=== PATIENT | female | born 1955 | race Caucasian/White ===

== ENCOUNTER 2024-10-06 16:45 | Emergency (ER) | payer MEDICARE ==
--- NOTE | 2024-10-06 16:54 | ED ---
Lower Extremity Injury HPI - General Stated Complaint: Fall-R foot injury Time Seen by Provider: 10/06/24 16:53 Source: patient, RN notes reviewed Mode of arrival: wheelchair Limitations: physical limitation - History of Present Illness Initial Comments: 69 year old female presenting to the ER for evaluation of right ankle injury. Patient states she was walking down stairs that were wet from the rain when she accidentally slipped. She states she twisted her right ankle during the process. No paresthesias to right foot. She denies head or other injuries. No other complaints. - Related Data Previous Rx's Medication Instructions Recorded HYDROcodone/APAP 7.5-325MG [Bent[place] 1 tab PO Q6HR PRN 3 Days #12 tab 10/06/24 7.5-325] Allergies Allergy/AdvReac Type Severity Reaction Status Date / Time adhesive Allergy Unknown Verified 10/06/24 16:56 aspartame Allergy Unknown Verified 10/06/24 16:56 nickel Allergy Unknown Verified 10/06/24 16:56 Review of Systems ROS Statement: Those systems with pertinent positive or pertinent negative responses have been documented in the HPI. ROS Other: All systems not noted in ROS Statement are negative. General Exam - General Exam Comments Initial Comments: Visual Physical Exam Vital signs reviewed General: Well-appearing, nontoxic, no acute distress. Head: Normocephalic, atraumatic Eyes: PERRLA, EOMI ENT: Airway patent Chest: Nonlabored breathing Skin: No visual rash, normal skin tone Neuro: Alert and oriented 3 Musculoskeletal: Edema to right ankle 2+ right DP pulse. Limitations: physical limitation General appearance: alert, in no apparent distress Respiratory exam: Present: normal lung sounds bilaterally. Absent: respiratory distress, wheezes, rales, rhonchi, stridor Cardiovascular Exam: Present: regular rate, normal rhythm, normal heart sounds. Absent: systolic murmur, diastolic murmur, rubs, gallop, clicks Extremities exam: Present: tenderness (Right ankle with surrounding edema normal contusion. No overlying wounds or rashes. 2+ right DP pulse. Sensation intact. Brisk cap refill.) Neurological exam: Present: alert, oriented X3, CN II-XII intact Skin exam: Present: warm, dry, intact, normal color. Absent: rash Course Vital Signs 10/06/24 10/06/24 16:52 18:57 Temperature 97.3 F L 98.1 F Pulse Rate 78 75 Respiratory 16 18 Rate Blood Pressure 145/72 122/80 O2 Sat by Pulse 99 96 Oximetry Procedures - Orthopedic Splinting/Casting Injury #1 Side: right Lower Extremity Injury Location: ankle Lower Extremity Immobilizer: posterior splint, stirrup splint Other Orthopedic Equipment: crutches Medical Decision Making - Medical Decision Making I performed the quick note portion of this chart. Electronically signed by John Ware PA-C Was pt. sent in by a medical professional or institution ([facility], [facility], urgent care, hospital, or assisted...) When possible be specific @ -No Did you speak to anyone other than the patient for history (EMS, parent, family, police, friend...)? What history was obtained from this source @ -No Did you review nursing and triage notes (agree or disagree)? Why? @ -I reviewed and agree with nursing and triage notes Were old charts reviewed (outside hosp., previous admission, EMS record, old EKG, old radiological studies, urgent care reports/EKG's, assisted records)? Report findings @ -No old charts were reviewed Differential Diagnosis (chest pain, altered mental status, abdominal pain women, abdominal pain men, vaginal bleeding, weakness, fever, dyspnea, syncope, headache, dizziness, GI bleed, back pain, seizure, CVA, palpatations, mental health, musculoskeletal)? @ -Differential Musculoskeletal: Muscular strain, contusion, ligament sprain, fracture, arthritis, septic arthritis, bursitis, cellulitis, muscle spasm, nerve compression, DVT, arterial occlusion, herpes zoster, electrolyte abnormality, tumor.... This is not meant to be in all inclusive list EKG interpreted by me (3pts min.). @ -None done X-rays interpreted by me (1pt min.). @ -Right ankle x-ray showed acute fracture of distal fibula and medial malleolus. Gaping of ankle mortise and medial malleolus concerning of syndesmotic injury. CT interpreted by me (1pt min.). @ -None done U/S interpreted by me (1pt. min.). @ -None done What testing was considered but not performed or refused? (CT, X-rays, U/S, labs)? Why? @ -None What meds were considered but not given or refused? Why? @ -None Did you discuss the management of the patient with other professionals (professionals i.e. DrFrank, PA, POWDERER, lab, RT, psych nurse, social media sr strategy manager, case hardener, teacher, airplane first officer, shoe caser)? Give summary @ -No Was smoking cessation discussed for >3mins.? @ -No Was critical care preformed (if so, how long)? @ -No Were there social determinants of health that impacted care today? How? (Homelessness, low income, unemployed, alcoholism, drug addiction, transportation, low edu. Level, literacy, decrease access to med. care, fdc, rehab)? @ -No Was there de-escalation of care discussed even if they declined (Discuss DNR or withdrawal of care, Hospice)? DNR status @ -No What co-morbidities impacted this encounter? (DM, HTN, Smoking, COPD, CAD, Cancer, CVA, ARF, Chemo, Hep., AIDS, mental health diagnosis, sleep apnea, morbid obesity)? @ -None Was patient admitted / discharged? Hospital course, mention meds given and route, prescriptions, significant lab abnormalities, going to OR and other pertinent info. @ -Discharge. 69-year-old female presenting to the ER for evaluation of right ankle injury. History and physical exam completed. Vitals within normal limits. Patient is neurovascularly intact. There is edema to right ankle. 2+ DP and PT pulse. No overlying skin changes. X-rays showing a distal fibula fracture and medial malleolus fracture with possible syndesmotic injury. Splint placed, see note above. Crutches provided. Patient given IM Dilaudid for pain control. Bentonia prescribed for outpatient pain management. I advised close follow-up with orthopedics, referral given. Strict return parameters discussed. Patient discharged in stable condition with follow-up to orthopedics. Patient verbally expressed understanding and agreement with care plan. Case discussed with ED attending, Dr. Hahn. Undiagnosed new problem with uncertain prognosis? @ -No Drug Therapy requiring intensive monitoring for toxicity (Heparin, Nitro, Insulin, Cardizem)? @ -No Were any procedures done? @ -Yes Diagnosis/symptom? @ -Distal fibula fracture/medial malleolar fracture Acute, or Chronic, or Acute on Chronic? @ -Acute Uncomplicated (without systemic symptoms) or Complicated (systemic symptoms)? @ -Uncomplicated Side effects of treatment? @ -No Exacerbation, Progression, or Severe Exacerbation? @ -No Poses a threat to life or bodily function? How? (Chest pain, USA, MA, pneumonia, PE, COPD, DKA, ARF, appy, cholecystitis, CVA, Diverticulitis, Homicidal, Suicidal, threat to staff... and all critical care pts) @ -No - Radiology Data Radiology results: report reviewed, image reviewed Disposition Clinical Impression: Fracture of distal fibula, Fractured medial malleolus Disposition: HOME SELF-CARE Condition: Stable Instructions (If sedation given, give patient instructions): Ankle Fracture (ED) Additional Instructions: Remain nonweightbearing. Follow-up with orthopedics. Return to the ER for new or worsening concerns. Prescriptions: HYDROcodone/APAP 7.5-325MG [Bent[place] 7.5-325] 1 tab PO Q6HR PRN 3 Days #12 tab PRN Reason: Moderate To Severe Pain (4-10) Is patient prescribed a controlled substance at d/c from ED?: Yes When asked, does pt state using other controlled substances?: No If prescribed controlled substance>3 days was MAPS reviewed?: Prescribed <3 Days If opioid is for acute pain is fill amount 7 days or less?: Yes If Rx opioid, was Start Talking consent form obtained?: Yes Referrals: Lakeshia Peters MD [Primary Care Provider] - 1-2 days Ricco Simmons DO [Doctor of Osteopathic Medicine] - 1-2 days Time of Disposition: 18:22
--- NOTE | 2024-10-06 17:50 | XR ---
EXAMINATION TYPE: XR foot complete RT, XR ankle complete RT DATE OF EXAM: 10/06/2024 5:44 PM COMPARISON: None CLINICAL INDICATION: Female, 69 years old with history of fall; , pain TECHNIQUE: XR foot complete RT, XR ankle complete RT examined in the AP, oblique, and lateral project ions. FINDINGS: Acute fracture distal fibula and medial malleolus. There is up to 6 mm displacement of the medial mal leolus. And gapping of the medial malleolus up to 9 mm. Calcaneal plantar spurring. Accessory ossicle noted. IMPRESSION: 1. Acute fracture distal fibula and medial malleolus. 2. Correlate for syndesmotic injury giving gapping of the ankle mortise and medial malleolus. Correl ate with proximal fibula tenderness for additional fracture at the knee. [facility], , 10/06/2024 5:48 PM
[2024-10-06] MEDS ORDERED: ONDANSETRON ODT 4 MG TAB PO STA (18:19)
[2024-10-06] MEDS: HYDROmorphone 1 MG/ML 1 ML SYRINGE IM STA (18:42)
[2024-10-06] MEDS: ONDANSETRON 4 MG TAB PO STA (18:43)
[2024-10-06 18:59] VITALS: BP 122/80; PULSE 75; RESP 18; TEMP 98.1
== END 2024-10-06 19:05 | disposition home or self-care (01) ==
LOC: EC 16:45
DX: S82.51XA Displaced fracture of medial malleolus of right tibia, initial encounter for closed fracture (principal); Z91.09 Other allergy status, other than to drugs and biological substances; Z88.8 Allergy status to other drugs, medicaments and biological substances; W10.9XXA Fall (on) (from) unspecified stairs and steps, initial encounter; X50.1XXA Overexertion from prolonged static or awkward postures, initial encounter; Y93.01 Activity, walking, marching and hiking
CPT/HCPCS: 73610; 73630; 29515; 99283; 96372; J1171